=== PATIENT | male | born 1955 | race Caucasian/White ===

== ENCOUNTER 2018-12-05 13:19 | Inpatient (IN) | payer BC ==
[~2018-12-05] VITALS: Ht 177.8 cm; Wt 94.2 kg
[2019-01-02] VITALS (12 sets, daily range): BP systolic 110–149; BP diastolic 54–75; PULSE 56–68; TEMP 97.6–99
--- NOTE | 2019-01-02 06:21 | NUR ---
Chuy Andrews CRNA was notified of the patient's marijuana use last night. The patient informed the nurse that he uses marijuana daily for a total of 1oz per month. David verbalized understanding of the report given.
[2019-01-02] MEDS ORDERED: ZANTAC 150MG T150 MG PO (06:32)
[2019-01-02] MEDS ORDERED: NIACIN 64 MG-501 TA1 PO (06:33)
--- NOTE | 2019-01-02 17:35 | NUR ---
Patient alert and oriented, answers questions appropriately. See assessment. Abdomen soft, non tender, non distended. Bowel sounds hypoactive x4 quads. Abdomen lap sites with edges well approximated, no drainage noted. ADELINE drain to LLQ compressed with bloody drainage noted. ERAS protocol. No c/o at this time.
--- NOTE | 2019-01-02 21:23 | NUR ---
Patient resting in bed. No confusion noted. Catheter in place. Draining yellow urine at this time, but urine in the bag noted to be dark pink in color. ADELINE drain to left side of abdomen draining bloody fluid. 30ml emptied. Lap sites CDI. Patient been up and walking.
[2019-01-03 03:34] VITALS: BP 117/54; PULSE 56; TEMP 98
[2019-01-03 05:36] LABS: HEMATOCRIT 39.9 % (42.0-52.0); HEMOGLOBIN 13.6 g/dl (13.5-18.0); MEAN CELL VOLUME 92 fl (80.0-100.0); MEAN CORPUSCULAR HEMOGLOBIN 31 pg (27.0-31.0); MEAN CORPUSCULAR HGB CONC 34 g/dl (33.0-37.0); MEAN PLATELET VOLUME 10.9 fl (7.4-10.4); PLATELET COUNT 183 K/mm3 (130-400); RED BLOOD COUNT 4.36 M/mm3 (4.20-5.60); REDCELL DISTRIBUTION WIDTH-CV 12.4 % (11.5-14.5)
[2019-01-03 06:00] LABS: POTASSIUM 4.6 mmol/L (3.4-5.0)
--- NOTE | 2019-01-03 06:18 | NUR ---
Lab reported WBC of 22.3. Value called to Dr. Mcgarry at 0615. Stated he will see him this morning. Will continue to monitor patient.
--- NOTE | 2019-01-03 06:59 | NUR ---
Pt continues to sleep soundly in bed, does not wake when staff enters room. Call light is within reach, will monitor.
--- NOTE | 2019-01-03 06:59 | NUR ---
Report given to SADAF Hoang.
[2019-01-03 07:42] VITALS: BP 111/62; PULSE 62; TEMP 97.8
--- NOTE | 2019-01-03 08:23 | NUR ---
Pt is awake and A/Ox4, resting in bed watching TV. He states his pain to abdomen is "minimal" rating it a 3/10. Lap sites to abdomen x5 are free of complications. ADELINE drain to left side of chest is draining blood tinged fluid, minimal in amount. Guerra cath is drainging pale yellow urine without difficulty. Pt is up as tolerated in rooms, has taken several laps around 3rd floor. Tolerating PO. Denies any other needs, will monitor.
[2019-01-03 09:13] LABS: BAND 3 % (0-10); LYMPHOCYTE 18 % (20.0-51.0); NEUTROPHILS 72 % (42.0-75.2)
--- NOTE | 2019-01-03 10:06 | NUR ---
Pt ambulating in hallways several times
--- NOTE | 2019-01-03 11:32 | NUR ---
Plan: Patient repots that he plans to stay with his daughter in [facility] for a few days after stay. EMR contact Tahira Hugo Ex- . Assess: SW met with patient about DC. Patient indicated that his family will transport him. Patient reports he obtains Rx from [facility] in [place]. Denies the use of DME, needing medications, or home health. Action:No additonal concerns identified at this time.
[2019-01-03 11:44] VITALS: BP 126/68; PULSE 54; TEMP 98.3
[2019-01-03 14:31] LABS: HEMATOCRIT 38.4 % (42.0-52.0); HEMOGLOBIN 12.9 g/dl (13.5-18.0); MEAN CELL VOLUME 93 fl (80.0-100.0); MEAN CORPUSCULAR HEMOGLOBIN 31 pg (27.0-31.0); MEAN CORPUSCULAR HGB CONC 34 g/dl (33.0-37.0); MEAN PLATELET VOLUME 10.8 fl (7.4-10.4); PLATELET COUNT 178 K/mm3 (130-400); RED BLOOD COUNT 4.14 M/mm3 (4.20-5.60); REDCELL DISTRIBUTION WIDTH-CV 12.7 % (11.5-14.5)
[2019-01-03 16:10] VITALS: BP 134/64; PULSE 59; TEMP 98.9
[2019-01-03] MEDS ORDERED: CIPRO 500MG TA500 MG PO (16:45)
[2019-01-03] MEDS ORDERED: SENOKOT8.6 MG PO (16:46)
--- NOTE | 2019-01-03 17:57 | NUR ---
Pt was discharged home from hospital. All discharge instructions and paperwork was reviewed with pt and family, both expressed understanding. ADELINE drain removed, dressing applied. Guerra cath to stay in place upon discharge. Pt educated on cath care. Saline lock removed, catheter tip intact. New prescription given. Pt was escorted out of facility by staff.
== END 2019-01-03 18:09 | disposition home or self-care (01) | DRG 708 ==
LOC: INPTSU 01-02 05:19 → SURG 01-02 07:30
PROVIDERS: Urology; ADMIT Urology
PROC: 07TC4ZZ Resection of Pelvis Lymphatic, Percutaneous Endoscopic Approach (ICD-10-PCS; 2019-01-02)
PROC: 8E0W4CZ Robotic Assisted Procedure of Trunk Region, Percutaneous Endoscopic Approach (ICD-10-PCS; 2019-01-02)
PROC: 0VT04ZZ Resection of Prostate, Percutaneous Endoscopic Approach (ICD-10-PCS; principal; 2019-01-02 07:30)
DX: C61 Malignant neoplasm of prostate (principal); E78.5 Hyperlipidemia, unspecified; R12 Heartburn; Z87.891 Personal history of nicotine dependence
CPT/HCPCS: A9284; J0690; J1100; J1200; J1885; J2405; J2704; J7120